=== PATIENT | female | born 1985 | race Caucasian/White ===

== ENCOUNTER → 2021-12-22 09:16 | Outpatient (CLI) | payer OTHER, SELFPAY ==
[2021-12-22 11:35] LABS: Hematocrit 35.9 % (36-46); Hemoglobin 12.3 g/dL (12.0-16.0); Mean Corpuscular HGB Conc 34.3 % (30-36); Mean Corpuscular Hemoglobin 31.7 PG (26-34); Mean Corpuscular Volume 92.6 fL (80-100); Platelet Count 157 X10^3/uL (150-400); Red Blood Cell Count 3.88 X10^6/uL (4.0-5.2); Red Cell Distribution Width 12.6 % (11.6-14.8); White Blood Cell Count 12.3 X10^3/uL (4.5-11.0)
[2021-12-22 12:28] LABS: Glucose Fasting 72 mg/dL (70-100)
[2021-12-22 13:29] LABS: Glucose Tol Interpretation INTERPRETATION
[2021-12-22 14:12] LABS: Glucose 1 Hour 130 mg/dL (70-170)
[2021-12-22 14:12] LABS: Glucose 2 Hour 103 mg/dL (70-140)
== END ==
PROVIDERS: PCP Nurse Practitioner Obstetrics & Gynecology; Referring Provider Nurse Practitioner Obstetrics & Gynecology; Visit Provider Nurse Practitioner Obstetrics & Gynecology
DX: Z34.90 Encounter for supervision of normal pregnancy, unspecified, unspecified trimester (principal); Z13.0 Encounter for screening for diseases of the blood and blood-forming organs and certain disorders involving the immune mechanism; Z3A.26 26 weeks gestation of pregnancy
CPT/HCPCS: 36415; 82951; 82952; 85027

== ENCOUNTER → 2022-03-16 15:54 | Outpatient (ROUT) | payer OTHER, SELFPAY ==
[2022-03-17 09:52] LABS: Strep Grp B PCR NEG for Grp B Strep
== END ==
PROVIDERS: PCP Nurse Practitioner Obstetrics & Gynecology; Visit Provider Nurse Practitioner Obstetrics & Gynecology
DX: Z34.90 Encounter for supervision of normal pregnancy, unspecified, unspecified trimester (principal); Z36.85 Encounter for antenatal screening for Streptococcus B; Z3A.36 36 weeks gestation of pregnancy
CPT/HCPCS: 87653

== ENCOUNTER 2022-04-16 16:40 | Inpatient (IN) | payer OTHER, SELFPAY ==
--- NOTE | 2022-04-16 17:54 | PM.OBHP.1 ---
OB HPI Date/Time Date of admission: 04/16/22 Date Patient Seen: 04/16/22 Time Patient Seen: 17:54 History of Present Condition Chief complaint: Labor : 1 Para: 0 Estimated Date of Delivery: 04/10/22 Estimated Gestational Age (weeks): 40.6 Narrative: Racquel Fernandez is a 36 year old female @ [id number] by LMP and 13wk US who presents for evaluation of labor. Awoke with contractions at 0300 today. Contractions have steadily progressed in frequency and intensity. Seen in clinic today at 0800 and 1200 with membranes swept at 4cm. Lots of FM and bloody show. No leaking of fluid. Uncomplicated care w/ CNM. Desires epidural as soon as possible. Partner and mother are present and supportive. History of Present care: good care, initiated at week # (13), number of visits (11) and pounds weight gain (17) Dating criteria: LMP confirmed by 1st trimester US Ultrasounds: normal mid trimester US Obstetrical complications: none Medical complications: none Preadmission Labs Blood type: O (+) positive -: Antibody screen: negative, GBS status: negative, HBsAG: negative, HIV: negative and RPR/VDLR: negative -: Chlamydia screen: not detected and Gonorrhea screen: not detected -: Rubella: equivocal and Varicella: immune HCT: 35.9 HCAB: negative Cell-free DNA: Negative Narrative: 2hr gtt: 72/130/103 Evaluation Evaluation Baseline heart rate: 145 Variability: Moderate (11-25) monitor accelerations: Present Monitor Decelerations: Absent Contraction Frequency (minutes): 2 Uterine Contraction Intensity: Strong/Firm Status: Category l Dilation (cm): 8 Effacement (%): 90 Dilation: >/=5 cm Effacement: >/=80% station: -1 Position of cervix: anterior Consistency: soft Edgar score: 12 PFSH Medical History (Updated 04/16/22 @ 17:59 by Snehal Gonsalez CNM) Anxiety Depression Family History (Updated 04/16/22 @ 17:59 by Snehal Gonsalez CNM) Father Hypertension Depression Mother Diabetes mellitus Depression Review of Systems Review of Systems ROS: Yes All systems reviewed with the patient and are negative except as otherwise documented OB Exam Narrative Exam Narrative: VS: BP 135/79mmHg, HR 93bpm, T 36.8C Temporal Resp Effort & Inspection: normal respiratory effort Auscultation: clear to auscultation bilaterally Cardio Rate: regular rate Rhythm: regular rhythm Heart Sounds: S1 normal and S2 normal Presentation: vertex Objective Labs Result Diagrams: 04/16/22 17:54 Assessment and Plan Assessment and Plan Assessment and Plan narrative: A: Term nullipara Active Labor No indication for GBS prophylaxis Cat I FHR P: Admit, routine orders. Epidural YAMILE. Labor support, PRN. Anticipate NSVB.
[2022-04-16] MEDS: LACTATED RINGERS 1,000 ML 100 ML IV ×2 (17:55→18:48)
[2022-04-16 18:09] LABS: Add Manual Diff / Slide Review NO; Basophils Absolute Auto 200 /uL (0-100); Basophils Percent Auto 0.8 % (0-2); Eosinophils Absolute Auto 0 /uL (0-450); Eosinophils Percent Auto 0.1 % (2-4); Hemoglobin 13.5 g/dL (12.0-16.0); Lymphocytes Absolute Auto 1900 /uL (1100-4500); Lymphocytes Percent Auto 9.5 % (25-40); Mean Corpuscular HGB Conc 34.7 % (30-36); Mean Corpuscular Volume 92.2 fL (80-100); Monocytes Absolute Auto 1000 /uL (0-900); Neutrophils Absolute Auto 16900 /uL (1500-7000); Neutrophils Percent Auto 84.6 % (50-75); Platelet Count 146 X10^3/uL (150-400); Red Blood Cell Count 4.23 X10^6/uL (4.0-5.2); Red Cell Distribution Width 12.9 % (11.6-14.8); White Blood Cell Count 19.9 X10^3/uL (4.5-11.0)
[2022-04-16 18:21] LABS: COVID19 -Nasal RAPID Negative (Negative)
--- NOTE | 2022-04-16 18:52 | PM.AN.REGBLK ---
Regional Block Pre-procedure Procedure: Continuous Epidural for Post-operative Pain Management Attending OB provider: Snehal Gonsalez PMH/ROS narrative: term labor, no complications ASA Class: II Labs: Hct 39.0 % (36-46) 04/16/22 17:54 Plt Count 146 X10^3/uL (150-400) L 04/16/22 17:54 Medications: Current Medications Generic Name Dose Route Start Last Admin Trade Name Freq PRN Reason Stop Dose Admin Calcium Carbonate 1,000 mg 04/16/22 17:40 Calcium Carbonate 500 Mg Tab PO Q2HR PRN Dyspepsia Carboprost Tromethamine 250 mcg 04/16/22 17:40 Carboprost 250 Mcg/Ml Ampul IM Q90M PRN Bleeding Diphenhydramine HCl 25 mg 04/16/22 18:46 Diphenhydramine 50 Mg/Ml Vial IV Q10M PRN Pruritis Fentanyl 100 mcg 04/16/22 17:40 Fentanyl 100 Mcg/2 Ml Inj IV Q1H PRN Pain, Severe (7-10) Lactated Ringer's 1,000 mls @ 100 mls/hr 04/16/22 17:45 04/16/22 18:48 Lactated Ringers IV 100 mls/hr CONT KETAN Administration Oxytocin/Lactated Ringer's 30 unit in 500 mls @ 200 mls/hr 04/16/22 17:40 Oxytocin Premix IV CONT PRN Bleeding Protocol Tranexamic Acid 1,000 mg/ 100 mls @ 200 mls/hr 04/16/22 17:40 Sodium Chloride IV NOW PRN Bleeding FENT 2MCG/ML BUPIV 0.125% EPI 200 mcg in 100 mls @ 8 mls/hr 04/16/22 19:00 Fentanyl/Bupiv/Ns 2mcg/Ml - 0.125% EPIDURAL CONT KETAN Methylergonovine Maleate 0.2 mg 04/16/22 17:40 Methylergonovine 0.2 Mg Tablet PO Q6HR PRN Heavy Bleeding Methylergonovine Maleate 0.2 mg 04/16/22 17:40 Methylergonovine 0.2 Mg/Ml Vial IM NOW PRN Bleeding Misoprostol 800 mcg 04/16/22 17:40 Misoprostol 200 Mcg Tablet NH NOW PRN Bleeding Misoprostol 1,000 mcg 04/16/22 17:40 Misoprostol 200 Mcg Tablet NH NOW PRN Bleeding Misoprostol 400 mcg 04/16/22 17:40 Misoprostol 200 Mcg Tablet SL NOW PRN Bleeding Nalbuphine HCl 2.5 mg 04/16/22 18:46 Nalbuphine 20 Mg/Ml Ampul IV Q10M PRN Pruritis Naloxone HCl 0.2 mg 04/16/22 17:40 Naloxone 0.4 Mg/Ml Vial IV Q2MIN PRN Opiate Reversal Ondansetron HCl 4 mg 04/16/22 17:40 Ondansetron 4 Mg/2 Ml Inj IV Q4HR PRN Nausea And Vomiting Oxytocin 10 unit 04/16/22 17:40 Oxytocin 10 Unit/Ml Vial IM NOW PRN Bleeding Procedure Insertion date: 04/16/22 Insertion time: 18:16 Prep/Local: betadine x3 and 1% lidocaine Interspace: L3-4 Patient position: sitting Needle: 18 gauge 10X10 Room (CSE: 27g Pencan through Hustead, clear CSF, 1mL 0.25% bupiv) Loss of resistance with: saline BHUPINDER at (cm): 5 Catheter placed at SKIN (cm): 10 Catheter in SPACE (cm): 5 Insertion: No CSF, No Blood, No Paresthesia with insertion, No Paresthesia with injection and No Test dose reaction Initial Medications TEST DOSE time: 18:20 TEST DOSE: 1.5% lidocaine with epinephrine 1:200k (mL): 3 BOLUS DOSE time: 18:27 BOLUS DOSE (mL): 5 BOLUS DOSE med: other (infusate) Infusion INFUSION: 0.125% bupivacaine and with fentanyl 2 mcg/mL Initial rate (mL/hr): 8 Subsequent interventions: to OR for CS Post-procedure Anesthesia time START: 18:05 Anesthesia time END: 05:52 Post-procedure Anesthesia Assessment: Yes CV function: HR/BP stable, Yes Resp function: RR/sat/airway adequate, Yes Mental status appropriate and No Anesthesia complications
[2022-04-16] MEDS: FENT 2MCG/ML BUPIV 0.125% EPI 200 MCG/100 ML PLAST..BAG 12 MCG EPIDURAL (18:53)
--- NOTE | 2022-04-16 20:41 | PM.OBPNLAB ---
Date/Time Date Patient Seen: 04/16/22 Time Patient Seen: 20:41 Pain Control Pain control: epidural Comments: Completely comfortable after epidural placement. VS: BP 110/64mmHg, HR 76bpm, T 36.7C Temporal Pelvic Exam Dilation (cm): 6 Effacement (%): 90 station: 0 Amniotic membrane status: Bulging Comments: Prior CE by RN and SNM Contractions Contractions on admission: none Monitor mode: External Pitocin rate (mU/min): 0 Contraction frequency (min): 2 Contraction duration (min): 1 Contraction pattern: Regular Contraction intensity: Strong/Firm Status status: Category l Heart Rate Baseline: 135 Monitor Accelerations: Present Monitor Decelerations: Early and Variable Monitor Variability: Moderate Assessment and Plan Assessment: active labor Plan: continuous present management Comments: Clarified correct CE with patient and gave reassurance of normal labor progression. Encourage peanut ball and frequent position changes. Reassess in 4 hours or sooner, PRN.
[2022-04-17] MEDS: FENT 2MCG/ML BUPIV 0.125% EPI 200 MCG/100 ML PLAST..BAG 8 MCG EPIDURAL (01:15)
--- NOTE | 2022-04-17 01:39 | PM.OBPNLAB ---
Date/Time Date Patient Seen: 04/17/22 Time Patient Seen: 00:20 Pain Control Pain control: tolerating well and epidural Comments: VS: BP 126/72mmHg, HR 69bpm, T 36.7C Temporal Pelvic Exam Dilation (cm): 7 Effacement (%): 90 station: 0 Amniotic membrane status: Ruptured (AROM) Comments: scant clear fluid with bloody show Contractions Contractions on admission: regular Monitor mode: External Pitocin rate (mU/min): 0 Contraction frequency (min): 2 Contraction duration (min): 1 Contraction pattern: Regular Contraction intensity: Mild Status status: Category ll Heart Rate Baseline: 135 Monitor Accelerations: Present Monitor Decelerations: Prolonged and Variable Assessment and Plan Assessment: active labor Plan: begin patient augmentation (AROM) Comments: Counseld on slow labor progress and Cat II FHR, though overall reassuring. Reassess in 2 hours, or sooner, PRN. Will consider IUPC if minimal change at next exam.
[2022-04-17] MEDS: LACTATED RINGERS 1,000 ML 100 ML IV ×2 (01:44→08:45)
--- NOTE | 2022-04-17 02:36 | PM.OBPNLAB ---
Date/Time Date Patient Seen: 04/17/22 Time Patient Seen: 02:36 Pain Control Pain control: tolerating well and epidural Comments: VS: BP 113/64mmHg, HR 74bpm, T 98.2F Oral Pelvic Exam Dilation (cm): 7 Effacement (%): 90 station: 0 Amniotic membrane status: Ruptured Comments: ROP presentation IUPC placed Contractions Monitor mode: External Pitocin rate (mU/min): 0 Contraction frequency (min): 2 Contraction pattern: Regular Contraction intensity: Mild Intrauterine tone measurement: 120 Status status: Category ll Heart Rate Baseline: 140 Monitor Accelerations: Present Monitor Decelerations: Late, Prolonged, Recurrent and Variable Monitor Variability: Moderate (periods of minimal) Assessment and Plan Assessment: active labor Plan: begin patient augmentation Comments: Counseled patient on Cat II FHR with discussion of consideration of . Given moderate variability and reassuring accelerations, will continue to watch closely. Recommend augmentation with pitocin which we will titrate per protocol 1. Will consult OB.
[2022-04-17] MEDS: OXYTOCIN PREMIX 30 UNIT/500 ML PLAST..BAG IV (02:50)
--- NOTE | 2022-04-17 05:08 | P.PNOB_ITS ---
Date/Time Date Patient Seen: 04/17/22 Time Patient Seen: 05:08 Pain Control Pain control: epidural Comments: Consulted and reviewed FHR tracing around 0300 with plan to gently begin pitocin augmentation. Pitocin reached max dose of 1mu/min. Continued periods of minimal variability with recurrent late decelerations. tehse persios switch to moderate variability with occasional prolonged deceleration, leeann to 90's. Minimal cervical change during this time. Pitocin has been turned off for Cat II FHR and unable to restart d/t Cat I FHR. Pelvic Exam Dilation (cm): 8 Effacement (%): 90 station: 0 Amniotic membrane status: Ruptured Contractions Monitor mode: External Pitocin rate (mU/min): 0 Contraction frequency (min): 2 Contraction pattern: Regular Contraction intensity: Mild Intrauterine tone measurement: 120 Status status: Category ll Assessment and Plan Assessment: active labor (arrest) Plan: Comments: Consulted ([facility]) and requested primary for intolerance of labor. calender supervisor and [facility] also notified at that time. Discussed recommendation for primary with patient and her partner and they are in agreement.
--- NOTE | 2022-04-17 05:31 | PM.PREOP ---
Pre-operative Note COVID-19 COVID-19 status: Negative Criteria for continued procedure: Non-surgical alternatives not available or appropriate per current SOC Interval Note History & Physical reviewed/Exam performed by Physician: Yes Changes to H&P: No H&P completed within 30 days and has changed as indicated here:: 04/16/22
[2022-04-17] MEDS: CEFAZOLIN 2 GM/100 ML PREMIX 100 ML IV (05:53)
[2022-04-17] MEDS: AZITHROMYCIN 500 MG in DEXTROSE 5% IN WATER 250 ML 250 MG IV (06:01)
[2022-04-17] MEDS: ACETAMINOPHEN IV 1,000 MG/100 ML VIAL 400 MG IV (06:15)
--- NOTE | 2022-04-17 06:15 | SUR.OPER ---
Supine on Padded OR bed, head on pillow, safety belt at thigh, arms secured on padded arm boards at <90 degrees abduction. Bump under right buttock. Legs uncrossed with pillow under knees, gel pad to heels, tape over blanket to lower legs.
--- NOTE | 2022-04-17 06:47 | SUR.OPER ---
FHT 135 prior to incision, vaible baby boy born at 0618, 3/8
--- NOTE | 2022-04-17 06:50 | SUR.OPER ---
cord blood and placenta sent to OB with OB RN
[2022-04-17 07:18] VITALS: BP 123/80; PULSE 82; RESP 14; TEMP 36.6; O2SAT 98
--- NOTE | 2022-04-17 07:18 | P.OP_ITS ---
Operative Date/Time/Diagnoses Date of procedure: 04/17/22 Time of procedure: 07:18 Pre-op diagnosis: 40+6 weeks gestation intolerance of labor Post-op diagnosis: same Procedure & Clinicians Procedure: Primary low-transverse section Same procedure as scheduled: Yes Indications: 40+6 weeks gestation intolerance of labor Surgeon: Lucia Stokes Click Yes if Unassisted: No Twisting Machine Operator: Roxanne Richardson Anesthesia Type: Epidural (With Duramorph) Operative Notes Findings: Live female infant in the direct occiput posterior presentation Normal uterus, tubes, and ovaries Thick meconium-stained amniotic fluid Closure Type: primary Specimen(s): cord blood and cord pH Intraoperative meds administered: Acetaminophen, Duramorph, Ketorolac and Pitocin Applied: Catheter (To continuous drainage) Estimated Blood Loss (mL): 650 Blood products transfused: none Procedure in detail: Patient was taken to the operating room where she was placed in the dorsal supine position with a leftward tilt. The baby's head was lifted from below with a sterile glove. She was prepped and draped in the usual sterile fashion. A timeout was performed. After epidural analgesia was found to be adequate, a Pfannenstiel skin incision was made 2 fingerbreadths above the pubic symphysis and carried through to the underlying layer fascia. The fascia was nicked in the midline, and the incision extended bilaterally with the Pacheco scissors. The superior aspect of the fascial incision was grasped with a [place] clamps, elevated, and the underlying rectus muscles dissected off sharply and bluntly. Attention was then turned to the inferior aspect of this incision which in a similar fashion was grasped with a Kwame clamps, elevated, and the underlying rectus muscles dissected off sharply and bluntly. The rectus muscles were in the midline. The peritoneum was identified, grasped between 2 hemostats, and entered sharply with the Metzenbaum scissors. This incision was extended superiorly and inferiorly with good visualization of the bladder. The bladder blade was inserted. The vesicouterine peritoneum was identified, grasped with the pickup, and entered sharply with the Metzenbaum scissors. This incision was extended bilaterally, and the bladder flap was created digitally. The bladder blade was reinserted. The lower uterine segment was incised in a t ransverse fashion with the scalpel. Upon entering the amniotic sac there was a moderate amount of thick meconium-stained amniotic fluid. The infant's head was delivered with assistance of the mid elevating from below. The nose and mouth were suctioned with bulb suction. The remainder of the body delivered without difficulty. The cord was double clamped and cut. Cord bloods and cord pH were obtained. The infant was handed off to waiting RN and RT. The placenta was delivered by expression. The uterus was cleared of all clots and debris. There was found to be an extension of the uterine incision on the left side. This was repaired in a running interlocking suture with #1 chromic. The uterine incision was repaired with #1 chromic in a running interlocking fashion, and a second layer the same suture was used for an imbricating layer. Hemostasis was achieved. The tubes and ovaries were examined and were found to be normal. The gutters were cleared of all clots and debris. The bladder flap was reapproximated using 2-0 Vicryl in a running fashion. The parietal peritoneum was closed using 2-0 Vicryl in a running fashion. The fascia was reapproximated using 0 Vicryl in a running fashion. Subcutaneous layer was copiously irrigated with warm normal saline. 6 simple interrupted sutures of 3-0 Vicryl were placed to reapproximate the subcutaneous layer. The skin was closed with 4-0 Monocryl in a subcuticular fashion. Steri-Strips were placed. An Aquacel dressing was placed. The uterus was expressed of a small amount of old blood. Sponge, lap, and instrument counts were correct x-2. The patient tolerated the procedure well, and was taken to PACU in stable condition. Complications: none Baby 1: Gender: Female Presentation: vertex Position: Occiput Posterior Placental Delivery Description: Expressed Cord Vessel Description: 3 Vessels, Nuchal Cord (X1), Loose and Reduced score (1 min): 3 score (5 min): 8 weight: 8 lb 2.7 oz Post-operative Condition: stable Disposition: PACU Aftercare: routine postop
[2022-04-17 07:23] VITALS: BP 104/74; PULSE 83; RESP 12; O2SAT 98
[2022-04-17 07:29] VITALS: BP 124/82; PULSE 75; RESP 12; O2SAT 96
[2022-04-17 07:38] VITALS: BP 102/65; PULSE 77; RESP 16; TEMP 36.4
[2022-04-17 07:39] VITALS: BP 127/65; PULSE 85; RESP 14; TEMP 36.6; O2SAT 98
[2022-04-17] MEDS: PRENATAL VIT,CALC/IRON/FOLIC 1 TABLET 1 TAB PO (09:58)
[2022-04-17] MEDS: DOCUSATE 100 MG CAPSULE 200 MG PO (09:58)
[2022-04-17 13:40] VITALS: TEMP 37
[2022-04-17] MEDS: KETOROLAC 30 MG/ML VIAL IV ×2 (13:40→20:26)
[2022-04-18] MEDS: ACETAMINOPHEN 325 MG TABLET 650 MG PO ×3 (04:12→16:48)
[2022-04-18] MEDS: KETOROLAC 30 MG/ML VIAL IV (04:12)
[2022-04-18 06:53] LABS: Hematocrit 27.4 % (36-46); Hemoglobin 9.2 g/dL (12.0-16.0)
[2022-04-18] MEDS: DOCUSATE 100 MG CAPSULE 200 MG PO (09:16)
[2022-04-18] MEDS: PRENATAL VIT,CALC/IRON/FOLIC 1 TABLET 1 TAB PO (09:16)
--- NOTE | 2022-04-18 09:51 | P.DS_ITS ---
Discharge Providers Provider Date of admission: 04/16/22 16:40 Discharge Date: 04/18/22 Primary care physician: Snehal Gonsalez CNM Consults: 04/17/22 09:44 Consult to Android Framework Developer Routine Comment: Discharge provider: Snheal Gonsalez CNM Summary Hospital Course Date Patient Seen: 04/18/22 Time Patient Seen: 09:51 Diagnoses: O82 Hospital Course: PPD1 s/p primary for intolerance of labor. Voiding, ambulating and independently and eager for discharge to home today. Vaginal bleeding is light, no clots. Pain is well controlled with PO medication. Tolerating a general diet and passing gas. without difficulty and nipples have no tenderness. Partner is present and supportive. Peripartum Data Infant Delivery Method: Section Laceration Description: None Episiotomy description: None Procedures: o82 complications: none 1: Gender: Male Disposition of : home Discharge Diagnosis (1) delivery delivered: Status: Acute Problem Details: routine post-op course Status at Discharge Cognitive/behavioral status at discharge: oriented and calm Functional status at discharge: independent ambulation Overall status at discharge: patient is progressing back to baseline Time Spent with Patient Time attestation: Total time spent providing and/or coordinating discharge services: Objective Labs Result Diagrams: 04/18/22 06:30 Labs: Laboratory Results - last 24 hr 04/18/22 06:30 Hgb 9.2 L Hct 27.4 L Exam Vital Signs (past 8 hours): Oxygen Delivery Method Room Air BP 102/65mmhg, HR 77bpm, RR 16/min, T 97.5F Temporal, SpO2 98% on RA Other: Unable to palpate fundus d/t retroverted position. Scant vaginal bleeding, no clots. Perineum with mild edema. Skin Other: LTAI incision covered with Aquacel dressing which is clean, dry and well sealed. No redness surrounding dressing. Discharge Plan Discharge Plan Patient Disposition: Home Provider Discharge Comment: this evening Discharge orders & Medications Prescriptions: New oxycodone 5 mg Tablet 5 mg PO Q4H PRN (Reason: Pain, Moderate (4-6)) 10 Days Qty: 30 0RF docusate sodium 100 mg Capsule 200 mg PO DAILY 14 Days Qty: 30 0RF ferrous sulfate 325 mg (65 mg iron) tablet 325 mg PO DAILY 90 Days Qty: 90 0RF acetaminophen 325 mg Tablet 650 mg PO Q6H PRN (Reason: Fever/Mild Pain (1-3)) 14 Days Qty: 60 0RF Follow up/Referrals: Snehal Gonsalez CNM [Primary Care Provider] - (Follow up in office , April 23, 2022 at 1pm Follow-up by telephone Wednesday, May 01, 2022 at 9am Follow up in office , May 28, 2022 at 10:30m) Diet/Activity/Treatments Diet: Diet as Tolerated and Regular Activity: Pelvic rest x 6 weeks. No heavy lifting x 6 week. No driving x 2 weeks. Skin/Wound/Dressing Care Report to your healthcare provider any signs of infection, such as:: chills, fever, increased pain, unusual drainage and unusual redness Dressing: may shower. Leave dreeing in place until 1 week office follow-up appointment. Visit Report/Discharge Packet Instructions: DI for , DI for and Nipple Soreness, DI for Prescription Opioid Use Stand Alone Forms: Discharge: Care Discharge Data Primary Care Provider: Snehal Gonsalez
[2022-04-18] MEDS: IBUPROFEN 600 MG TABLET PO ×2 (10:30→16:49)
[2022-04-18] MEDS: MEASLES,MUMPS,RUBELLA VACC/PF 0.5 ML VIAL SUBCUT (17:56)
== END 2022-04-18 18:34 | disposition home or self-care (01) | DRG 788 ==
PROVIDERS: Obstetrics & Gynecology; Admitting Provider Nurse Practitioner Obstetrics & Gynecology; PCP Nurse Practitioner Obstetrics & Gynecology; Referring Provider Nurse Practitioner Obstetrics & Gynecology; Visit Provider Nurse Practitioner Obstetrics & Gynecology
PROC: 10D00Z1 Extraction of Products of Conception, Low, Open Approach (ICD-10-PCS; CPT 59514; principal; 2022-04-17 06:15)
DX: O76 Abnormality in fetal heart rate and rhythm complicating labor and delivery (principal); Z3A.40 40 weeks gestation of pregnancy; Z37.0 Single live birth; O69.81X0 Labor and delivery complicated by cord around neck, without compression, not applicable or unspecified; Z20.822 Contact with and (suspected) exposure to COVID-19; O90.81 Anemia of the puerperium; D50.0 Iron deficiency anemia secondary to blood loss (chronic)
CPT/HCPCS: 01967; 01968; 36415; 59050; 59514; 85014; 85018; 85025; 86850; 86900; 86901; 87635; C9803; G0379; J0131; J0690; J1885; J2274; J2590; J3010

== ENCOUNTER → 2023-03-29 16:38 | Outpatient (CLI) | payer OTHER, SELFPAY ==
--- NOTE | 2023-03-29 16:40 | DI.US.S_ITS ---
PROCEDURE: US OB <= 14 WEEKS FETUS INDICATIONS: DATING OUTSIDE/PRIOR DATING DATA: Last menstrual period (LMP): Undo known. LMP-based estimated date of delivery (IVAN): Unknown. First dating scan (date and location): 03/29/2023. Estimated date of delivery (IVAN) from first dating scan: 10/07/2023. TECHNIQUE: Real-time scanning was performed of the fetus and maternal pelvic organs, with image documentation. Endovaginal scanning was also performed to better visualize the fetus and maternal ovaries. COMPARISON: [facility], US, US OB > 14 WEEKS COMPLETE ANATOMY, 11/24/2021, 10:17. FINDINGS: Embryo: Single live intrauterine is identified with crown-rump length measuring 6.1 cm corresponding to 12 weeks 4 days. Heart rate: 168 beats per minute. Maternal organs: Ovaries are unremarkable within visualized portions.. IMPRESSION: Single live intrauterine with ultrasound gestational age of 12 weeks 4 days corresponding to ultrasound IVAN of 10/07/2023. We strive to produce accurate, complete, and clear reports of imaging services. To assist us in improving patient care, this report was composed using standard report templates and voice recognition software. Therefore, it may contain abnormal punctuation, insertions and/or omissions. Occasional wrong-word or sound-alike substitutions may occur. Though we review the report and make efforts to correct it, we do recommend that the report be read carefully in proper context to recognize any text inaccuracies. Dictated by: Jacklyn Lemus M.D. on 03/30/2023 at 16:04 Approved by: Jacklyn Lemus M.D. on 03/30/2023 at 16:05
== END ==
PROVIDERS: PCP Nurse Practitioner Obstetrics & Gynecology; Referring Provider Advanced Practice Midwife; Visit Provider Advanced Practice Midwife
DX: O26.841 Uterine size-date discrepancy, first trimester (principal); O09.521 Supervision of elderly multigravida, first trimester; Z3A.12 12 weeks gestation of pregnancy
CPT/HCPCS: 76801; 76817

== ENCOUNTER → 2023-05-21 15:10 | Outpatient (CLI) | payer OTHER, MEDICAID, SELFPAY ==
--- NOTE | 2023-05-21 | DI.US.S_ITS ---
PROCEDURE: US OB >= 14 WEEKS FETUS INDICATIONS: 20 WEEK ANATOMY OUTSIDE/PRIOR DATING DATA: Last menstrual period (LMP): Unknown LMP-based estimated date of delivery (IVAN): Unknown. First dating scan (date and location): 03/29/2023. Estimated date of delivery (IVAN) from first dating scan: 10/07/2023. The calculations are made using the ultrasound IVAN of 10/07/2023. TECHNIQUE: Real-time scanning was performed of the fetus, with image documentation and biometric measurements. Endovaginal scanning: Not performed COMPARISON: None. FINDINGS: General: A single living intrauterine gestation is present. Presentation: Breech. Placenta: Placental position is posterior , without previa. A placental Santana measuring 2.6 x 1.9 x 2.5 centimeters is noted. Amniotic fluid index: 10.5 cm, normal range is 5-24 cm. Single deepest vertical pocket is 3.4 cm. heart rate: 150 beats per minute. Maternal cervical canal: 3.9 cm long. Normal lower limit is 2.5 cm. biometrics: Biparietal diameter: 4.4 centimeters, 19 weeks 3 days Head circumference: 16.7 centimeters, 19 weeks 3 days Abdominal circumference: 14.9 centimeters, 20 weeks 1 day Femur length: 3.2 centimeters, 20 weeks 0 days Clinically estimated gestational age: 20 weeks 1 day Composite gestational age from present scan: 19 weeks 5 day Estimated weight and percentile: 320 grams, 39th percentile Anatomic survey: Neuro: Ventricles are non-dilated at less than 10 mm. Cisterna magna is normal at 3-11 mm. Cerebellum is normal in size and morphology. Nuchal skin fold: Normal at less than 6 mm between 14-21 weeks gestational age. Face: Nose and lips, facial profile are normal. Spine: No evidence for spina bifida. Heart: 4-chambered heart is present, with normal ventricular outflow tracts. Diaphragm: Diaphragm is intact. Stomach: Left-sided stomach is present. Kidneys: No hydronephrosis. Normal is less than 5 mm in 2nd trimester, less than 7 mm in 3rd trimester. Cord: 3-vessel cord has orthotopic insertion. Bladder: Normal in size. Extremities: All 4 extremities identified. IMPRESSION: 1. Single live intrauterine dating 19 weeks and 5 days. 2. Normal anatomic survey. 3. Placental Santana is noted measuring 2.6 centimeters. We strive to produce accurate, complete, and clear reports of imaging services. To assist us in improving patient care, this report was composed using standard report templates and voice recognition software. Therefore, it may contain abnormal punctuation, insertions and/or omissions. Occasional wrong-word or sound-alike substitutions may occur. Though we review the report and make efforts to correct it, we do recommend that the report be read carefully in proper context to recognize any text inaccuracies. Dictated by: Philip Romano M.D. on 05/21/2023 at 17:08 Approved by: Philip Romano M.D. on 05/21/2023 at 17:11
== END ==
PROVIDERS: Referring Provider Nurse Practitioner Obstetrics & Gynecology; Visit Provider Nurse Practitioner Obstetrics & Gynecology
DX: O43.892 Other placental disorders, second trimester (principal); Z3A.19 19 weeks gestation of pregnancy
CPT/HCPCS: 76811

== ENCOUNTER 2023-09-30 05:35 | Inpatient (IN) | payer OTHER, MEDICAID, SELFPAY ==
[2023-09-30 07:04] LABS: Add Manual Diff / Slide Review NO; Basophils Absolute Auto 100 /uL (0-100); Basophils Percent Auto 0.8 % (0-2); Eosinophils Absolute Auto 100 /uL (0-450); Eosinophils Percent Auto 0.6 % (2-4); Hematocrit 38.5 % (36-46); Lymphocytes Absolute Auto 2200 /uL (1100-4500); Mean Corpuscular HGB Conc 33.7 % (30-36); Mean Corpuscular Hemoglobin 30.8 PG (26-34); Mean Corpuscular Volume 91.2 fL (80-100); Monocytes Absolute Auto 1100 /uL (0-900); Monocytes Percent Auto 8.1 % (3-14); Neutrophils Absolute Auto 9700 /uL (1500-7000); Neutrophils Percent Auto 73.5 % (50-75); Platelet Count 141 X10^3/uL (150-400); Red Blood Cell Count 4.22 X10^6/uL (4.0-5.2); Red Cell Distribution Width 12.9 % (11.6-14.8); White Blood Cell Count 13.2 X10^3/uL (4.5-11.0)
[2023-09-30] MEDS: CITRIC ACID/SODIUM CITRATE 15 ML SOLUTION 30 ML PO (07:22)
--- NOTE | 2023-09-30 07:37 | PM.OBHP.IH.1 ---
OB HPI Date/Time Date of admission: 09/30/23 Date Patient Seen: 09/30/23 Time Patient Seen: 07:41 History of Present Condition Chief complaint: INPT C SECTION IVAN Calculator Estimated Delivery Date Method Current WG Current Estimate 10/07/23 Ultrasound #1 39w 0d Estimated Gestational Age (weeks): 39 : 2 Para: 1 care: good care, initiated at week # (12), number of visits (7) and pounds weight gain (26) Dating criteria OB: LMP confirmed by 1st trimester US Ultrasounds: normal 1st trimester US and normal mid trimester US Obstetrical complications: none Medical complications OB: none Indications Operative indications ( section): previous uterine surgery Preadmission Labs Last OB Lab Results: Blood Type O Positive 04/16/22 17:54 Antibody Screen Negative 04/16/22 17:54 Hematocrit 38.5 % (36-46) 09/30/23 06:50 Hemoglobin 13.0 g/dL (12.0-16.0) 09/30/23 06:50 Group B Streptococcus (PCR) Neg for grp b strep 03/16/22 14:00 -: Urine: negative External Labs Blood type OB HPI: O (+) positive -: Antibody screen: negative, HBsAG: negative, HIV: negative, RPR/VDLR: negative, Chlamydia screen: negative, Gonorrhea screen: negative, GBS status: negative and Urine: negative -: Rubella: immune and Varicella: immune HCAB: reactive Genetic Screens: Cell-free DNA: Normal (normal male) and Alpha-fetoprotein: Normal Glucose Tolerance Testin hr (134) Evaluation Evaluation Baseline heart rate: 135 Variability: Moderate (11-25) monitor accelerations: Present Monitor Decelerations: Absent Category of Tracing: Reactive [facility] Medical History (Updated 07/10/23 @ 16:22 by Lucia Stokes MD) Anxiety Depression Family History (Updated 04/16/22 @ 17:59 by Snehal Gonsalez CNM) Father Hypertension Depression Mother Diabetes mellitus Depression Social History Smoking Status: Former smoker Meds Home Medications and Allergies Allergies Allergy/AdvReac Type Severity Reaction Status Date / Time ibuprofen AdvReac Rash Verified 09/23/23 11:16 Latex, Natural Rubber AdvReac Rash Verified 09/23/23 11:16 OB Exam Narrative Exam Narrative: Patient is sitting up in bed, tearful, no acute distress Lungs: Clear to auscultation bilaterally Cardiovascular: Regular rate and rhythm Abdomen: Well-healed Pfannenstiel scar Fundal height: 39 cm Estimated weight 7 1/2 to 8 lb Extremities: No edema Objective Labs 09/30/23 06:50 Labs: Laboratory Results - last 24 hr 09/30/23 06:50 WBC 13.2 H RBC 4.22 Hgb 13.0 Hct 38.5 MCV 91.2 MCH 30.8 MCHC 33.7 RDW 12.9 Plt Count 141 L Neut % (Auto) 73.5 Lymph % (Auto) 17.0 L [place] % (Auto) 8.1 Eos % (Auto) 0.6 L Baso % (Auto) 0.8 Neut # (Auto) 9700 H Lymph # (Auto) 2200 [place] # (Auto) 1100 H Eos # (Auto) 100 Baso # (Auto) 100 Assessment and Plan Assessment and Plan Assessment and Plan narrative: Assessment: 38-year-old 2 para 1 at 39 weeks gestation with a previous section Plan: Repeat low-transverse section The risks, benefits, and alternatives to the procedure were explained to the patient. The risks including bleeding, infection, injury to the bowel, bladder, or ureters. She understands these risks and agrees to proceed. A full par Q was held and consent form was signed. Time Spent with Patient Total time spent with greater than 50% in coordination of care (as documented) at patient's floor/unit and/or counseling patient:: 15-24 minutes
--- NOTE | 2023-09-30 07:49 | PM.PREOP ---
Pre-operative Note Interval Note History & Physical reviewed/Exam performed by Physician: Yes Changes to H&P: No H&P completed within 30 days and has changed as indicated here:: 09/30/23
[2023-09-30] MEDS: CEFAZOLIN 2 GM/100 ML PREMIX 100 ML IV (08:00)
[2023-09-30] MEDS: LACTATED RINGERS 1,000 ML 42 ML IV (08:12)
--- NOTE | 2023-09-30 08:21 | SUR.OPER ---
FHR:145 pre-op. Cord blood and placenta to OB with OB RN
--- NOTE | 2023-09-30 08:26 | SUR.OPER ---
TOB live male [id number].
[2023-09-30] MEDS: ACETAMINOPHEN IV 1,000 MG/100 ML VIAL 400 MG IV (08:34)
--- NOTE | 2023-09-30 09:04 | PM.PROC.1 ---
Procedures Date/Time Date of procedure: 09/30/23 Time of procedure: 07:45 General Procedure description: Docket Specialist Documentation I assisted the OB student admissions clerk in the section for this patient. My responsibilities included retracting and suctioning, providing fundal pressure during delivery and following with suture during closure. Please see the OB's note for details of the surgery.
[2023-09-30 09:10] VITALS: BP 103/68; PULSE 63; RESP 16; TEMP 36.2; O2SAT 98
[2023-09-30 09:15] VITALS: BP 100/60; PULSE 66; RESP 16; TEMP 36.2; O2SAT 98
--- NOTE | 2023-09-30 09:17 | PM.OBCS.1 ---
Operative Date/Time/Diagnoses Date of procedure: 09/30/23 Time of procedure: 09:17 Pre-op diagnosis: 39 weeks gestation Previous section Keloid scar Post-op diagnosis: same Procedure & Clinicians Procedure: Repeat low-transverse section Scar revision Same procedure as scheduled: Yes Indications: 38-year-old 2 para 1 at 39 weeks gestation with a previous section and keloid scar. She presents for repeat section and scar revision. Surgeon: Lucia Stokes Click Yes if Unassisted: No Pipe And Test Supervisor: Cynthia Pizano Reason for Pipe And Test Supervisor: The parts room assistant was necessary to retract upon entry into the abdomen and uterus. She assisted with delivery of the infant with fundal pressure. She assisted with closure with retraction, clipping of suture, and closure of the contralateral fascia. Anesthesia Type: Spinal (with Duramorph) Operative Notes Findings: Live male infant Keloid scar of the incision Moderate fascial scarring Normal tubes and ovaries Closure Type: primary Specimen(s): cord blood and placenta Intraoperative meds administered: Duramorph, Ketorolac and Pitocin Applied: Catheter (To continuous drainage) Estimated Blood Loss (mL): 200 Blood products transfused: none Procedure in detail: The patient was taken to the operating room where she was placed in the seated position. Spinal anesthesia with Duramorph was administered. The patient was then placed in the dorsal supine position with a leftward tilt. She was prepped and draped in the usual sterile fashion. A timeout was performed. After spinal analgesia was found to be adequate, the previous scar was excised in an elliptical fashion. The incision was then carried through to the underlying layer fascia. The fascia was nicked in the midline, and the incision extended bilaterally with the Pacheco scissors. The fascia was dense with adhesion. The superior aspect of the fascial incision was grasped with a Kwame clamps, elevated, and the underlying rectus muscles dissected off sharply and bluntly. Attention was then turned to the inferior aspect of this incision which in a similar fashion was grasped with a Winsted clamps, elevated, and the underlying rectus muscles dissected off sharply and bluntly. The rectus muscles were in the midline. The peritoneum was identified, grasped between 2 hemostats, and entered sharply with the Metzenbaum scissors. This incision was extended superiorly and inferiorly with good visualization of the bladder. Some scar tissue was cut to make more room in the incision. The bladder blade was inserted. The vesicouterine peritoneum was identified, grasped with the pickup, and entered sharply with the Metzenbaum scissors. This incision was extended bilaterally, and the bladder flap was created digitally. The bladder blade was reinserted. The lower uterine segment was incised in a transverse fashion with the scalpel. Upon entering the amniotic sac there was thin meconium stained amniotic fluid. The infant's head was delivered without difficulty. The nose and mouth were suctioned with bulb suction. The remainder of the body was delivered without difficulty. The cord was double clamped and cut after one minute. The was handed off to waiting RN and RT. Pitocin was given in the IVF's. The placenta was delivered by expression. The uterus was cleared of all clots and debris. The uterine incision was repaired with #1 chromic in a running interlocking fashion, and a second layer the same suture was used for an imbricating layer. Hemostasis was achieved. The tubes and ovaries were examined and were found to be normal. The gutters were cleared of all clots and debris. The bladder flap was reapproximated using 2-0 Vicryl in a running fashion. The parietal peritoneum was closed using 2-0 Vicryl in a running fashion. The fascia was reapproximated using 0 Vicryl in a running fashion. The subcutaneous layer was copiously irrigated with warm normal saline. 5 simple interrupted sutures of 3-0 Vicryl were placed to reapproximate the subcutaneous layer. The skin was closed with 4-0 Monocryl in a subcuticular fashion. Steri-Strips were placed. An Aquacel dressing was placed. The uterus was expressed of a small amount of old blood. The fundus was marked. Sponge, lap, and instrument counts were correct x-2. The patient tolerated the procedure well, and was taken to PACU in stable condition. Complications: none Baby 1: Infant Gender: Male Presentation: vertex Position: Right Occiput Anterior Placental Delivery Description: Expressed Cord Vessel Description: 3 Vessels and Clamped/Cut (after one minute) score (1 min): 9 score (5 min): 9 weight: 6 lb 13.8 oz Post-operative Condition: stable Disposition: PACU Aftercare: routine postop
[2023-09-30 09:22] VITALS: BP 100/70; PULSE 66; RESP 16; TEMP 36.8; O2SAT 98
[2023-09-30 10:33] VITALS: BP 113/72
[2023-09-30] MEDS: KETOROLAC 10 MG TABLET PO ×2 (16:15→22:45)
[2023-09-30] MEDS: ACETAMINOPHEN 325 MG TABLET 650 MG PO (18:52)
[2023-10-01] MEDS: ACETAMINOPHEN 325 MG TABLET 650 MG PO ×2 (01:00→11:02)
[2023-10-01] MEDS: KETOROLAC 10 MG TABLET PO ×2 (05:21→11:01)
[2023-10-01 07:50] LABS: Hematocrit 31.9 % (36-46); Hemoglobin 10.9 g/dL (12.0-16.0)
[2023-10-01] MEDS: DOCUSATE 100 MG CAPSULE PO (11:01)
[2023-10-01] MEDS: PRENATAL VIT,CALC/IRON/FOLIC 1 TABLET 1 TAB PO (11:02)
[2023-10-01] MEDS: OXYCODONE IR 5 MG TABLET PO (11:02)
[2023-10-01 12:48] VITALS: BP 113/72; PULSE 66; RESP 16; TEMP 36.8
--- NOTE | 2023-10-02 12:50 | P.DS_ITS ---
Discharge Providers Provider Date of admission: 09/30/23 05:35 Discharge Date: 10/01/23 Primary care physician: Doctor Laurel MD Consults: 09/30/23 10:30 Consult to Tar Distributor Operator Routine Comment: Discharge provider: Lucia Stokes MD Summary Hospital Course Date Patient Seen: 10/01/23 Time Patient Seen: 07:40 Diagnoses: Thirty-nine weeks' gestation Previous section Keloid scar of the incision Repeat low-transverse section Scar revision Meconium-stained amniotic fluid Spinal anesthesia Hospital Course: Patient is a 38-year-old 2 para 2 who presented on September 30, 2023 for a scheduled repeat low-transverse section and scar revision. She underwent this procedure without complication. Her postoperative course was unremarkable. On postop day # 1 she was tolerating a diet, ambulating, pain well controlled, going well, bleeding tapering. She had voided without the catheter. She was discharged to home. Peripartum Data Infant Delivery Method: Section Procedures: Spinal anesthesia with Duramorph Repeat low-transverse section Keloid scar revision complications: none 1: Gender: Male Disposition of : home Status at Discharge Cognitive/behavioral status at discharge: oriented Functional status at discharge: independent ambulation Overall status at discharge: patient is progressing back to baseline Time Spent with Patient Time attestation: Total time spent providing and/or coordinating discharge services: Time spent: Less than 30 minutes Objective Labs 10/01/23 07:10 Exam Vital Signs (past 8 hours): Oxygen Delivery Method Room Air Narrative Exam Narrative: Generally: Patient walking around in room, no acute distress Lungs: CTA bilat CV: RRR Fundus: Firm at U -1 Incision: Clean dry and intact with Aquacel dressing Extremities: Negative Homans, no edema Discharge Plan Discharge Plan Patient Disposition: Home Provider Discharge Comment: Call with fever, chills, redness or drainage around the incision, or bleeding vaginally more than a pad in an hour Toradol 15 mg every 6 hours as needed Tylenol 650 mg every 6 hours as needed Stool softener as needed Push oral fluids Discharge orders & Medications Prescriptions: New oxycodone 5 mg tablet 5 mg PO Q4H PRN (Reason: pain) Qty: 14 0RF ketorolac 10 mg tablet 10 mg PO TID PRN (Reason: pain) 5 Days Qty: 14 0RF Follow up/Referrals: Lucia Stokes MD [Physician] - (Follow-up with the midwives as directed) Snehal Gonsalez CNM [Advanced Family Day Care Worker] - (Thursday, October 05, 2023 @ 2:15 pm Friday, October 13, 2023 @ 1:00pm Wednesday, November 08, 2023 @ 11:15) Diet/Activity/Treatments Diet: Regular Activity: No heavy lifting, nothing more than the baby for the first 2 weeks Skin/Wound/Dressing Care Report to your healthcare provider any signs of infection, such as:: chills, fever, increased pain, unusual drainage and unusual redness Dressing: Do not remove Midwives will remove in 1 week Visit Report/Discharge Packet Instructions: DI for , DI for Prescription Opioid Use Stand Alone Forms: Discharge: Care, Congestive Heart Failure, Patient Portal/API, Stroke Signs & Symptoms Discharge Data Primary Care Provider: Miscellaneous,Doctor
== END 2023-10-01 12:30 | disposition home or self-care (01) | DRG 788 ==
PROVIDERS: Admitting Provider Obstetrics & Gynecology; Referring Provider Obstetrics & Gynecology; Visit Provider Obstetrics & Gynecology
PROC: 10D00Z1 Extraction of Products of Conception, Low, Open Approach (ICD-10-PCS; CPT 59514; principal; 2023-09-30 07:45)
DX: O34.211 Maternal care for low transverse scar from previous cesarean delivery (principal); Z3A.39 39 weeks gestation of pregnancy; Z37.0 Single live birth
CPT/HCPCS: 36415; 59050; 59514; 85014; 85018; 85025; 86850; 86900; 86901; J0136; J0690; J1100; J1885; J2274; J2405